=== PATIENT | female | born 1990 | race Caucasian/White ===

== ENCOUNTER 2019-10-19 12:29 | Emergency (ER) | payer OTHER ==
[~2019-10-19] VITALS: Ht 165.1 cm; Wt 91.2 kg
[2019-10-19 12:56] VITALS: BP 151/93
--- NOTE | 2019-10-19 12:58 | PHYS DOC ---
Adult General Chief Complaint Chief Complaint: WRIST PAIN [facility] HPI Patient is a 28-year-old female who presents with complaint of right wrist pain after injuring her wrist at work. Patient was placing boxes up on a shelf when her glove got stuck to the box and box came back down and crushed her right wris t. Patient rates pain as moderate. She states the pain is worsened with movement of the wrist. She denies any other injuries.[] Review of Systems Review of Systems Constitutional: Denies fever or chills [] Respiratory: Denies cough or shortness of breath [] Cardiovascular: No additional information not addressed in HPI [] Musculoskeletal: Complains of right wrist pain [] Integument: Denies rash or skin lesions [] Physical Exam Physical Exam Constitutional: Well developed, well nourished, no acute distress, non-toxic appearance. [] Cardiovascular:Heart rate regular rhythm, no murmur [] Lungs & Thorax: Bilateral breath sounds clear to auscultation [] Extremities: Examination of right wrist demonstrates tenderness to palpation along the radial and ulnar aspect of the wrist. No soft tissue swelling or deformity is noted on exam.. [] Neurologic: Alert and oriented X 3, no focal deficits noted. [] EKG EKG [] Radiology/Procedures Radiology/Procedures [] Impressions: PROCEDURE: WRIST 3V RIGHT EXAM: Right wrist, 3 views. HISTORY: Crush injury. COMPARISON: None. FINDINGS: 3 views of the right wrist are obtained. There is no fracture, dislocation or subluxation. IMPRESSION: No acute osseous finding. Electronically signed by: Shakira Peralta MD (10/19/2019 1:02 PM) [facility] Course & Med Decision Making Course & Med Decision Making Pertinent Labs and Imaging studies reviewed. (See chart for details) [] Dragon Disclaimer Dragon Disclaimer This electronic medical record was generated, in whole or in part, using a voice recognition dictation system. Departure Departure: Impression: Primary Impression: Sprain of right wrist Disposition: HOME, SELF-CARE Condition: STABLE Referrals: JANAE MURGUIA MD (PCP) Patient Instructions: Joint Sprain Scripts Diclofenac Sodium (DICLOFENAC SODIUM) 50 Mg Tablet.dr 1 TAB PO BID PRN for PAIN, #20 TAB Prov: PATRICIA HOLLY Jr. DO 10/19/19 Problem Qualifiers Primary Impression: Sprain of right wrist Encounter type: initial encounter Qualified Codes: S63.501A - Unspecified sprain of right wrist, initial encounter PATRICIA HOLLY Jr. DO Oct 19, 2019 12:58
--- NOTE | 2019-10-19 13:05 | RAD ---
EXAM: Right wrist, 3 views. HISTORY: Crush injury. COMPARISON: None. FINDINGS: 3 views of the right wrist are obtained. There is no fracture, dislocation or subluxation. IMPRESSION: No acute osseous finding. Electronically signed by: Shakira Peralta MD (10/19/2019 1:02 PM) [place] [id number]
[2019-10-19] MEDS ORDERED: DICL50TA4 PO (13:15)
== END 2019-10-19 13:25 | disposition home or self-care (01) ==
LOC: ER 12:29
DX: S63.501A Unspecified sprain of right wrist, initial encounter (principal); W23.0XXA Caught, crushed, jammed, or pinched between moving objects, initial encounter; Y93.89 Activity, other specified; Y92.89 Other specified places as the place of occurrence of the external cause; Y99.0 Civilian activity done for income or pay
CPT/HCPCS: 73110; 99284

== ENCOUNTER 2019-11-26 18:23 | Emergency (ER) | payer OTHER, BC ==
[~2019-11-26] VITALS: Ht 165.1 cm; Wt 103.6 kg
[~2019-11-26 18:23] MED LIST: DICL50TA4 PO
[2019-11-26] MEDS ORDERED: IV RINGERS SOLUTION,LACTATED 1,000 ML IV SCH (18:32)
--- NOTE | 2019-11-26 18:41 | PHYS DOC ---
Past History Past Medical History: No Pertinent History Past Surgical History: No Surgical History Alcohol Use: None Drug Use: None Adult General Chief Complaint Chief Complaint: ".. I am sick.. fever.. my last check it was 103.. been ta bob NyQuil flu and ibuprofen but I'm not better I think to kids preferred home probably.... I got my flu vaccination this season....".. " I ve only been sick three days.. but I am beat... coughing all the time..." HPI HPI Patient is a 29-year-old year old female who presents with above history and complaints of fever , chills, malaise, arthralgia, myalgia, pharyngitis, and fatigue. Patient did receive her flu vaccination this season. No history of travel or specific ill contacts other than children who have had some upper respiratory problems. Patient normally follows with Dr. Murguia. Review of Systems Review of Systems Constitutional: History of fever or chills [] Eyes: Denies change in visual acuity, redness, or eye pain [] HENT: History of nasal congestion and sore throat [] Respiratory: History of a nonproductive cough GI: Denies abdominal pain, nausea, vomiting, bloody stools or diarrhea [] : Denies dysuria or hematuria [] Musculoskeletal: Complaints of myalgia and arthralgia Integument: Denies rash or skin lesions [] Neurologic: Denies headache, focal weakness or sensory changes [] Endocrine: Denies polyuria or polydipsia [] All other systems were reviewed and found to be within normal limits, except as documented in this note. Family History Family History Noncontributory to current presentation Current Medications Current Medications Current Medications Medications (Trade) Dose Ordered Sig/Virgil Start Time Stop Time Status Last Admin Dose Admin Ibuprofen (Motrin) 600 mg 1X ONCE 11/26/19 18:45 11/26/19 18:46 UNV Lactated Ringer's 1,000 ml @ 1,000 mls/hr Q1H 11/26/19 18:32 11/26/19 19:31 UNV Oxycodone/ Acetaminophen (Percocet 5/325) 2 tab 1X ONCE 11/26/19 18:45 11/26/19 18:46 UNV Allergies Allergies No known drug allergies Physical Exam Physical Exam Constitutional: Moderate acute distress, non-toxic appearance. [] HENT: Normocephalic, atraumatic, bilateral external ears normal, oropharynx moist, injected pharynx, no oral exudates, nose swollen turbinates and clear rhinorrhea Eyes: PERRLA, EOMI, conjunctiva normal, no discharge. [] Neck: Normal range of motion, no tenderness, supple, no stridor. [] Cardiovascular: Tachycardia Heart rate regular rhythm, no murmur [] Lungs & Thorax: Bilateral breath sounds equal apex auscultation. A few scattered wheezes Abdomen: Bowel sounds normal, soft, no tenderness, no masses, no pulsatile masses. [Obese Skin: Warm, dry, no erythema, no rash. [] Back: No tenderness, no CVA tenderness. [] Extremities: No tenderness, no cyanosis, no clubbing, ROM intact, no edema. [] Neurologic: Alert and oriented X 3, normal motor function, normal sensory function, no focal deficits noted. [] Psychologic: Affect normal, judgement normal, mood normal. [] EKG EKG [] Radiology/Procedures Radiology/Procedures [] Course & Med Decision Making Course & Med Decision Making Pertinent Labs and Imaging studies reviewed. (See chart for details) Push clear fluids. Take Tylenol and ibuprofen as needed for pain or discomfort. Bath and shower help control for fever. Follow-up with Dr. Murguia. Return if any concerns. Take Tamiflu 75 mg twice day. Impression= 1. Fever 2. Influenza A [] Dragon Disclaimer Dragon Disclaimer This electronic medical record was generated, in whole or in part, using a voice recognition dictation system. Departure Departure: Disposition: 01 HOME/RESIDENCE PRIOR TO ADM Condition: STABLE Referrals: JANAE MURGUIA MD (PCP) Scripts Oseltamivir Phosphate (TAMIFLU) 75 Mg Capsule 75 MG PO BID for Influ A for 5 Days, #10 CAP Prov: LANA PINA MD 11/26/19 Dragon Disclaimer This chart was dictated in whole or in part using Voice Recognition software in a busy, high-work load, and often noisy Emergency Department environment. It may contain unintended and wholly unrecognized errors or omissions. LANA PINA MD Nov 26, 2019 18:41
[2019-11-26] MEDS ORDERED: oxyCODONE/APAP 5/325 1 TAB TABLET PO ONE (18:45)
[2019-11-26] MEDS ORDERED: ONDANSETRON ODT 4 MG TAB.RAPDIS PO ONE (18:45)
[2019-11-26] MEDS ORDERED: IBUPROFEN 600 MG TABLET. PO ONE ×2 (18:45→18:54)
[2019-11-26] MEDS ORDERED: predniSONE 10 MG TABLET PO ONE (18:45)
[2019-11-26] MEDS ORDERED: ONDANSETRON ODT 4 MG TAB.RAPDIS ONE (18:54)
[2019-11-26] MEDS ORDERED: predniSONE 10 MG TABLET ONE (18:54)
[2019-11-26] MEDS ORDERED: oxyCODONE/APAP 5/325 1 TAB TABLET ONE (18:54)
[2019-11-26 19:00] VITALS: BP 161/73
[2019-11-26 19:18] LABS: CALCIUM 8.3 mg/dL (8.5-10.1); CREATININE 0.8 mg/dL (0.6-1.0); GFR 84.2; POTASSIUM 3.6 mmol/L (3.5-5.1)
[2019-11-26 19:23] LABS: BASO % 1 % (0-3); EOS % 0 % (0-3); HEMATOCRIT 41.7 % (36.0-47.0); HEMOGLOBIN 13.8 g/dL (12.0-15.5); LYMPH # 0.8 x10^3/uL (1.0-4.8); LYMPH % 12 % (24-48); MEAN CORPUSCULAR HEMOGLOBIN 29 pg (25-35); MEAN CORPUSCULAR HGB CONC 33 g/dL (31-37); MEAN CORPUSCULAR VOLUME 88 fL (79-100); MONO # 0.8 x10^3/uL (0.0-1.1); MONO % 11 % (0-9); NEUT # 5.5 x10^3uL (1.8-7.7); NEUT % 76 % (31-73); PLATELET COUNT 247 x10^3/uL (140-400); RED BLOOD COUNT 4.72 x10^6/uL (3.50-5.40); RED CELL DISTRIBUTION WIDTH 13.7 % (11.5-14.5); WHITE BLOOD COUNT 7.2 x10^3/uL (4.0-11.0)
[2019-11-26 19:30] LABS: BACTERIA,URINE FEW /HPF (0-FEW); BILIRUBIN,URINE NEG (NEG); CLARITY,URINE CLEAR; COLOR,URINE YELLOW; GLUCOSE,URINE NEG (NEG); NITRITE,URINE NEG (NEG); RBC,URINE OCC /HPF (0-2); SQUAMOUS EPITHELIAL CELL,UR FEW /LPF; UROBILINOGEN,URINE 0.2 mg/dL (0.2 mg/dL); WBC,URINE OCC /HPF (0-4)
[2019-11-26] MEDS ORDERED: ALBUTEROL SULFATE 8GM INHALER. INH ONE (19:30)
[2019-11-26 19:33] LABS: INFLUENZA A PATIENT POSITIVE (NEGATIVE); INFLUENZA B PATIENT NEGATIVE (NEGATIVE)
[2019-11-26] MEDS ORDERED: OSEL75CA PO (23:52)
[2019-11-27] MEDS ORDERED: OSELTAMIVIR 75 MG CAPSULE PO ONE (00:30)
== END 2019-11-27 00:07 | disposition home or self-care (01) ==
LOC: ER 18:23
DX: J10.1 Influenza due to other identified influenza virus with other respiratory manifestations (principal); R50.9 Fever, unspecified
CPT/HCPCS: 36415; 80048; 81001; 81025; 83605; 85025; 87040; 87070; 87804; 87880; 94640; 99285; J7120; J7512; J7613; Q0162; 96360; 94664